=== PATIENT | female | born 1990 | race Hispanic/Latino ===

== ENCOUNTER 2021-03-19 17:17 | Emergency (ER) | payer OTHER ==
[~2021-03-19] VITALS: Ht 154.9 cm; Wt 87.5 kg
[2021-03-19 18:07] LABS: BASOPHILS % (AUTO) 0.4 % (0.0-5.0); EOSINOPHILS % (AUTO) 1.2 % (0.0-8.0); HEMATOCRIT 28.6 % (36-48); MEAN CORPUSCULAR HGB CONC 33.9 g/dL (32.0-36.0); MEAN CORPUSCULAR VOLUME 82.4 fL (79-99); MONOCYTES % (AUTO) 4.6 % (3.0-13.0); NEUTROPHILS % (AUTO) 69.6 % (40.0-77.0); PLATELET COUNT (AUTO) 276 K/uL (130-400); RED BLOOD CELL COUNT(AUTO) 3.47 MIL/uL (4.00-5.50); RED CELL DISTRIBUTION WIDTH 13.1 % (11.0-15.5); WHITE BLOOD COUNT (AUTO) 11.2 K/uL (4.8-10.8)
[2021-03-19 18:08] VITALS: BP 142/70
[2021-03-19 18:34] LABS: ALBUMIN 1.9 g/dL (3.5-5.0); CREATININE 1.6 mg/dL (0.5-1.5); POTASSIUM 3.9 mmol/L (3.5-5.1); TOTAL PROTEIN, SERUM 7.2 g/dL (6.0-8.3)
[2021-03-19] MEDS ORDERED: ACYC-138 PO (18:51)
[2021-03-19] MEDS ORDERED: MUPI15C TP (18:51)
[2021-03-19] MEDS ORDERED: CEPH500B PO (18:51)
[2021-03-19] MEDS ORDERED: ACET-2247 PO (18:51)
[2021-03-19] MEDS ORDERED: INSULIN LISPRO 100 UNIT/ML 3ML SQ ONE (19:00)
[2021-03-19 19:03] LABS: BILIRUBIN,TOTAL 0.1 mg/dL (0.2-1.0)
== END 2021-03-19 19:44 | disposition home or self-care (01) ==
LOC: EDH 17:17
DX: G51.0 Bell's palsy (principal); B00.9 Herpesviral infection, unspecified; K04.7 Periapical abscess without sinus; L98.9 Disorder of the skin and subcutaneous tissue, unspecified; E11.9 Type 2 diabetes mellitus without complications; I10 Essential (primary) hypertension; E66.9 Obesity, unspecified; Z79.4 Long term (current) use of insulin; Z95.810 Presence of automatic (implantable) cardiac defibrillator; Z79.899 Other long term (current) drug therapy; Z68.36 Body mass index [BMI] 36.0-36.9, adult
CPT/HCPCS: 36415; 80053; 85025; 96372